=== PATIENT | male | born 1985 | race Caucasian/White ===

== ENCOUNTER 2018-04-22 14:32 | Emergency (ER) | payer SELFPAY ==
--- NOTE | 2018-04-22 15:23 | RAD REPORT ---
EXAM DESCRIPTION: RAD - Foot Right 3 View - 04/22/2018 3:13 pm CLINICAL HISTORY: Right foot pain status post injury FINDINGS: No fracture or dislocation is seen
--- NOTE | 2018-04-22 15:42 | ER ---
Nurse's Notes [facility] Name: Shashi Fernandes Age: 33 yrs Sex: Male : 1985 Arrival Date: 04/22/2018 Time: 14:33 Bed 10 Private MD: Unknown, Unknown Diagnosis: Contusion of right foot Presentation: 04/22 14:47 Presenting complaint: Patient states: "I dropped a hydraulic motor on my foot aa5 yesterday". Bruising noted to right foot. Transition of care: patient was not received from another setting of care. Onset of symptoms was April 2018. Risk Assessment: Do you want to hurt yourself or someone else? Patient reports no desire to harm self or others. Initial Sepsis Screen: Does the patient meet any 2 criteria? No. Patient's initial sepsis screen is negative. Does the patient have a suspected source of infection? No. Patient's initial sepsis screen is negative. Care prior to arrival: None. 14:47 Method Of Arrival: Ambulatory aa5 14:47 Acuity: LANDEN 4 aa5 Triage Assessment: 16:00 General: Appears in no apparent distress. iw 16:00 General: Behavior is calm, cooperative. iw 16:00 Injury Description: Abrasion. iw Historical: - Allergies: 14:48 No Known Allergies; aa5 - PMHx: 14:48 Anxiety; Bipolar disorder; Depression; PTSD; aa5 - PSHx: 14:48 None; aa5 - Immunization history:: Adult Immunizations unknown. - Social history:: Smoking status: Patient uses tobacco products, smokes one-half pack cigarettes per day. - Ebola Screening: : No symptoms or risks identified at this time. Screenin:00 Abuse screen: Denies threats or abuse. Nutritional screening: No deficits noted. aa5 Tuberculosis screening: No symptoms or risk factors identified. Fall Risk None identified. Assessment: 15:00 General: Appears comfortable, Behavior is calm, cooperative. Pain: Complains of pain in aa5 dorsum of right foot. Neuro: Level of Consciousness is awake, alert, obeys commands, Oriented to person, place, time, situation. Cardiovascular: No deficits noted. Respiratory: Airway is patent Respiratory effort is even, unlabored, Respiratory pattern is regular, symmetrical. GI: No signs and/or symptoms were reported involving the gastrointestinal system. : No signs and/or symptoms were reported regarding the genitourinary system. EENT: No signs and/or symptoms were reported regarding the EENT system. Derm: Skin is pink, warm \\T\\ dry. Bruising that is dark purple, on dorsum of right foot. Musculoskeletal: Range of motion: intact in all extremities. Vital Signs: 14:48 BP 143 / 79; Pulse 70; Resp 16 S; Temp 99.1(TE); Pulse Ox 99% on R/A; Weight 74.84 kg aa5 (R); Height 5 ft. 6 in. (167.64 cm) (R); Pain 8/10; 14:48 Body Mass Index 26.63 (74.84 kg, 167.64 cm) aa5 ED Course: 14:33 Patient arrived in ED. ag5 14:33 Unknown, Unknown is Private Physician. ag5 14:35 [facility]C [facility] snw 14:35 Davonte Gould MD is Attending Physician. snw 14:47 Triage completed. aa5 14:47 Arm band placed on. aa5 14:47 Patient has correct armband on for positive identification. aa5 14:49 Lyida Chi, RN is Primary Nurse. aa5 15:14 Foot Right 3 View XRAY In Process Unspecified. EDMS 16:20 Primary Nurse role handed off by Lydia Chi RN iw 16:20 Sandy Olivo, RN is Primary Nurse. iw 16:20 No provider procedures requiring assistance completed. Patient did not have IV access aa5 during this emergency room visit. Administered Medications: 16:20 Drug: Doxycycline 100 mg Route: PO; iw 16:20 Drug: Tetanus-Diphtheria Toxoid Adult 0.5 ml {Pyridine Operator: [email or web address]. Exp: iw 11/28/2018. Lot #: [id number]. } Route: IM; Site: right deltoid; 16:21 Drug: TORadol 60 mg Route: IM; Site: Ventrogluteal LEFT; iw Outcome: 15:42 Discharge ordered by . snw 16:20 Discharged to home ambulatory. aa5 16:20 Condition: good 16:20 Discharge instructions given to patient, Instructed on discharge instructions, follow up and referral plans. medication usage, Demonstrated understanding of instructions, follow-up care, medications, Prescriptions given X 2. 16:27 Patient left the ED. iw Signatures: Dispatcher [employer] EDSheila Orlando, BUSINESS OPERATIONS ANALYST-C BUSINESS OPERATIONS ANALYST-Csnw Sandy Olivo, RN RN iw Lydia Chi RN RN aa5 Shan Patel ag5 Corrections: (The following items were deleted from the chart) 17:33 16:20 Discharge instructions given to patient, Instructed on discharge instructions, aa5 follow up and referral plans. Demonstrated understanding of instructions, follow-up care, aa5
--- NOTE | 2018-04-22 15:43 | EDPHYS ---
Physician Documentation [facility] Name: Shashi Fenrandes Age: 33 yrs Sex: Male : 1985 Arrival Date: 04/22/2018 Time: 14:33 Bed 10 Private MD: Unknown, Unknown ED Physician Davonte Gould HPI: 04/22 15:36 This 33 yrs old Male presents to ER via Ambulatory with complaints of Foot snw Injury. 15:36 The patient presents with a crush injury, swelling, tenderness. The complaints affect snw the dorsum of right foot. Context: The problem was sustained outdoors, resulted from a crush injury, hydrolic motor, the patient can partially bear weight, the patient is able to ambulate, Problem is a result from a previous injury: No. Onset: The symptoms/episode began/occurred suddenly, yesterday, and became persistent. Associated signs and symptoms: The patient has no apparent associated signs or symptoms. Severity of symptoms: At their worst the symptoms were moderate, in the emergency department the symptoms are unchanged. The patient has not experienced similar symptoms in the past. It is unknown whether or not the patient has recently seen a physician. Historical: - Allergies: 14:48 No Known Allergies; aa5 - PMHx: 14:48 Anxiety; Bipolar disorder; Depression; PTSD; aa5 - PSHx: 14:48 None; aa5 - Immunization history:: Adult Immunizations unknown. - Social history:: Smoking status: Patient uses tobacco products, smokes one-half pack cigarettes per day. - Ebola Screening: : No symptoms or risks identified at this time. ROS: 15:35 Constitutional: Negative for fever, chills, and weight loss, Eyes: Negative for injury, snw pain, redness, and discharge, ENT: Negative for injury, pain, and discharge, Neck: Negative for injury, pain, and swelling, Cardiovascular: Negative for chest pain, palpitations, and edema, Respiratory: Negative for shortness of breath, cough, wheezing, and pleuritic chest pain, Abdomen/GI: Negative for abdominal pain, nausea, vomiting, diarrhea, and constipation, Back: Negative for injury and pain, : Negative for injury, bleeding, discharge, and swelling, Skin: Negative for injury, rash, and discoloration, Neuro: Negative for headache, weakness, numbness, tingling, and seizure. 15:35 MS/extremity: Positive for injury or acute deformity, contusion, ecchymosis, swelling, tenderness, of the right foot and right first toe. Exam: 15:33 Constitutional: This is a well developed, well nourished patient who is awake, alert, snw and in no acute distress. Head/Face: Normocephalic, atraumatic. Eyes: Pupils equal round and reactive to light, extra-ocular motions intact. Lids and lashes normal. Conjunctiva and sclera are non-icteric and not injected. Cornea within normal limits. Periorbital areas with no swelling, redness, or edema. ENT: Nares patent. No nasal discharge, no septal abnormalities noted. Tympanic membranes are normal and external auditory canals are clear. Oropharynx with no redness, swelling, or masses, exudates, or evidence of obstruction, uvula midline. Mucous membranes moist. Neck: Trachea midline, no thyromegaly or masses palpated, and no cervical lymphadenopathy. Supple, full range of motion without nuchal rigidity, or vertebral point tenderness. No Meningismus. Chest/axilla: Normal chest wall appearance and motion. Nontender with no deformity. No lesions are appreciated. Cardiovascular: Regular rate and rhythm with a normal S1 and S2. No gallops, murmurs, or rubs. Normal PMI, no JVD. No pulse deficits. Respiratory: Lungs have equal breath sounds bilaterally, clear to auscultation and percussion. No rales, rhonchi or wheezes noted. No increased work of breathing, no retractions or nasal flaring. Abdomen/GI: Soft, non-tender, with normal bowel sounds. No distension or tympany. No guarding or rebound. No evidence of tenderness throughout. Back: No spinal tenderness. No costovertebral tenderness. Full range of motion. Skin: Warm, dry with normal turgor. Normal color with no rashes, no lesions, and no evidence of cellulitis. Neuro: Awake and alert, GCS 15, oriented to person, place, time, and situation. Cranial nerves II-XII grossly intact. Motor strength 5/5 in all extremities. Sensory grossly intact. Cerebellar exam normal. Normal gait. Psych: Awake, alert, with orientation to person, place and time. Behavior, mood, and affect are within normal limits. 15:33 Musculoskeletal/extremity: Extremities: grossly normal except: noted in the right first toe: contusion, ecchymosis, swelling, tenderness, ROM: no acute changes, Circulation is intact in all extremities. Sensation intact. Compartment Syndrome exam of affected extremity: is normal. Vital Signs: 14:48 BP 143 / 79; Pulse 70; Resp 16 S; Temp 99.1(TE); Pulse Ox 99% on R/A; Weight 74.84 kg aa5 (R); Height 5 ft. 6 in. (167.64 cm) (R); Pain 8/10; 14:48 Body Mass Index 26.63 (74.84 kg, 167.64 cm) aa5 MDM: 14:58 Patient medically screened. snw 15:43 Data reviewed: vital signs, nurses notes. Data interpreted: Pulse oximetry: on room air snw is 99 %. Interpretation: normal. Counseling: I had a detailed discussion with the patient and/or guardian regarding: the historical points, exam findings, and any diagnostic results supporting the discharge/admit diagnosis, the presence of at least one elevated blood pressure reading (>120/80) during this emergency department visit, radiology results, the need for outpatient follow up, to return to the emergency department if symptoms worsen or persist or if there are any questions or concerns that arise at home. Special discussion: I have referred the patient to see his PCP for further evaluation of high blood pressure. I discussed in detail with the patient the higher chance of wound infection based on his presenting history. Based on the history and exam findings, there is no indication for further emergent testing or inpatient evaluation. I discussed with the patient/guardian the need to see the orthopedic surgeon for further evaluation of the symptoms. I discussed with the patient/guardian the need to see the primary care provider for further evaluation of the symptoms. 04/22 14:48 Order name: Foot Right 3 View XRAY; Complete Time: 15:25 aa5 04/22 15:43 Order name: Federico wrap-joint; Complete Time: 16:06 snw 04/22 15:43 Order name: Post-op Orthopedic Shoe; Complete Time: 16:06 snw Administered Medications: 16:20 Drug: Doxycycline 100 mg Route: PO; iw 16:20 Drug: Tetanus-Diphtheria Toxoid Adult 0.5 ml {Behavioral Geneticist: [email or web address]. Exp: iw 11/28/2018. Lot #: [id number]. } Route: IM; Site: right deltoid; 16:21 Drug: TORadol 60 mg Route: IM; Site: Ventrogluteal LEFT; Disposition: 16:40 Co-signature as Attending Physician, Davonte Gould MD. rn Disposition: 04/22/18 15:42 Discharged to Home. Impression: Contusion of right foot. - Condition is Stable. - Discharge Instructions: Elastic Bandage and RICE, Foot Contusion, VIS, Tetanus, Diphtheria (Td) - CDC. - Prescriptions for Diclofenac Sodium 75 mg Oral Tablet Sustained Release - take 1 tablet by ORAL route 2 times per day; 30 tablet. Doxycycline Hyclate 100 mg Oral Tablet - take 1 tablet by ORAL route every 12 hours; 20 tablet. - Medication Reconciliation Form, Thank You Letter, Antibiotic Education, Prescription Opioid Use, Work release form form. - Follow up: Private Physician; When: 2 - 3 days; Reason: Recheck today's complaints, Continuance of care, Re-evaluation by your physician. Follow up: Emergency Department; When: As needed; Reason: Worsening of condition. Signatures: Dispatcher [employer] EDMS Sheila Jones, TOOL FILER HAND-C TOOL FILER HAND-Csnw Sandy Olivo RN RN Davonte Gould MD MD rn Calderon, Audri, RN RN aa5 Corrections: (The following items were deleted from the chart) 16:27 15:42 04/22/2018 15:42 Discharged to Home. Impression: Contusion of right foot. iw Condition is Stable. Forms are Medication Reconciliation Form, Thank You Letter, Antibiotic Education, Prescription Opioid Use. Follow up: Private Physician; When: 2 - 3 days; Reason: Recheck today's complaints, Continuance of care, Re-evaluation by your physician. Follow up: Emergency Department; When: As needed; Reason: Worsening of condition. snw
[2018-04-22] MEDS ORDERED: TETANUS & DIPHTHERIA TOX,ADULT 0.5 ML VIAL ONE (16:22)
[2018-04-22] MEDS ORDERED: KETOROLAC 30 MG/ML INJ ONE (16:22)
[2018-04-22] MEDS ORDERED: DOXYCYCLINE 100 MG CAP PO ONE (16:22)
== END 2018-04-22 16:27 | disposition home or self-care (01) ==
LOC: ER 14:32
DX: S90.31XA Contusion of right foot, initial encounter (principal); W31.89XA Contact with other specified machinery, initial encounter; Y93.89 Activity, other specified; Y92.9 Unspecified place or not applicable; Y99.8 Other external cause status; Z23 Encounter for immunization; F17.210 Nicotine dependence, cigarettes, uncomplicated
CPT/HCPCS: 90714; 96372; 99283

== ENCOUNTER 2019-09-07 22:39 | Emergency (ER) | payer SELFPAY ==
[2019-09-07] MEDS ORDERED: NA CHLORIDE 0.9% 1,000 ML ONE (22:56)
[2019-09-08] MEDS ORDERED: NA CHLORIDE 0.9% 1,000 ML ONE ×3 (00:04→05:47)
[2019-09-08 00:17] LABS: Absolute Lymphocytes (CBC) 0.8 K/uL (0.7-4.9); Basophils % 0.4 % (0-1.3); Hematocrit 56.2 % (39.6-49.0); Lymphocytes % 3.6 % (15.3-44.8); MPV 10.5 fL (7.6-11.3); RBC Red Blood Cell Count 5.94 M/uL (4.33-5.43)
[2019-09-08 00:50] LABS: Barbiturates NEGATIVE (NEGATIVE); Benzodiazepines POSITIVE (NEGATIVE); Cocaine POSITIVE (NEGATIVE); METHAMPHETAM POSITIVE (NEGATIVE); Methadone NEGATIVE (NEGATIVE); Opiates NEGATIVE (NEGATIVE); Phencyclidine NEGATIVE (NEGATIVE); THC Cannibis NEGATIVE (NEGATIVE)
[2019-09-08 01:18] LABS: Albumin 3.3 g/dL (3.4-5.0); Alkaline Phosphatase 77 U/L (45-117); BUN Blood Urea Nitrogen 77 mg/dL (7-18); Bicarbonate 21 mmol/L (21-32); Bilirubin Direct 0.3 mg/dL (0-0.2); Bilirubin Total 0.7 mg/dL (0.2-1.0); Glucose Level 132 mg/dL (74-106); Protein, Total 8.8 g/dL (6.4-8.2); Sodium Level 138 mmol/L (136-145)
[2019-09-08 01:20] LABS: ALT/SGPT 1073 U/L (12-78); AST/SGOT 1759 U/L (15-37); Potassium 6.7 mmol/L (3.5-5.1)
[2019-09-08 01:21] LABS: Creatine Phosphokinase > 14000 U/L (39-308); Troponin (Emerg Dept Use Only) 6.82 ng/mL (0.0-0.045)
[2019-09-08 01:22] LABS: Blood Morphology Comment NOT SEEN (NOT SEEN); Platelet Estimate ADEQ
[2019-09-08] MEDS ORDERED: INSULIN -REGULAR HUMAN 50 UNIT/0.5 ML ML ONE (01:39)
[2019-09-08] MEDS ORDERED: D50W 25 GM/50 ML SYRINGE/VIAL IV ONE (01:39)
[2019-09-08] MEDS ORDERED: Caclcium Chloride 10% INJ SYR IV ONE (01:40)
[2019-09-08] MEDS ORDERED: CEFEPIME 2 GM VIAL ONE (02:03)
[2019-09-08] MEDS ORDERED: VANCOMYCIN 1 GM/VIAL ONE (02:04)
[2019-09-08] MEDS ORDERED: NA CHLORIDE 0.9% 100 ML IV ONE (02:04)
[2019-09-08] MEDS ORDERED: NA CHLORIDE 0.9% 250 ML ONE (02:04)
[2019-09-08] MEDS ORDERED: ALBUTEROL 2.5 MG/3 ML NEB SOL ONE (02:28)
[2019-09-08] MEDS ORDERED: ACETAMINOPHEN 650MG/RECT SUPP PR ONE (03:50)
[2019-09-08 05:25] LABS: Arterial Blood Carboxyhemoglob 0.8 % (0-1.5); Blood Gas Oxyhemoglobin 92.4 % (94-97)
[2019-09-08] MEDS ORDERED: HYDROCORTISONE SUC 100 MG INJ ONE (05:47)
[2019-09-08] MEDS ORDERED: FAMOTIDINE 20 MG/2 ML VIAL IV ONE (05:47)
[2019-09-08] MEDS ORDERED: NA CHLORIDE 0.9% 500 ML ONE (05:47)
[2019-09-08 05:58] LABS: Absolute Lymphocytes (CBC) 1.1 K/uL (0.7-4.9); Basophils % 0.8 % (0-1.3); Hematocrit 43.9 % (39.6-49.0); Lymphocytes % 5.5 % (15.3-44.8); MPV 10.1 fL (7.6-11.3); RBC Red Blood Cell Count 4.62 M/uL (4.33-5.43)
[2019-09-08 06:27] LABS: Potassium 5.3 mmol/L (3.5-5.1)
[2019-09-08 06:59] LABS: Blood Morphology Comment NOT SEEN (NOT SEEN); Platelet Estimate ADEQ
--- NOTE | 2019-09-08 10:40 | EDPHYS ---
Physician Documentation [facility] Name: Shashi Fernandes Age: 34 yrs Sex: Male : 1985 Arrival Date: 09/07/2019 Time: 22:42 Bed 20 Private MD: ED Physician Robby Nichols HPI: 09/06 22:44 This 34 yrs old Male presents to ER via EMS with complaints of Altered Mental jmm Status. 22:44 The patient presents with confusion, decreased mental status. Onset: The jmm symptoms/episode began/occurred at an unknown time. Possible causes: drug use. Associated signs and symptoms: Pertinent negatives: abdominal pain. This is a 34 year old male with a history of depression, bipolar, that presents to the ED with decreased responsiveness. Patient was found by hotel staff. Patient denies chest pain, abdominal pain. . Historical: - Allergies: 09/07 07:57 No Known Allergies; sv - PMHx: 09/06 22:58 PTSD; Depression; Bipolar disorder; Anxiety; ea - PSHx: 22:58 None; ea - Immunization history:: Adult Immunizations unknown. - Social history:: Smoking status: unknown. ROS: 22:44 Constitutional: Negative for fever, chills, and weight loss, Cardiovascular: Negative jmm for chest pain, palpitations, and edema, Respiratory: Negative for shortness of breath, cough, wheezing, and pleuritic chest pain, Abdomen/GI: Negative for abdominal pain, nausea, vomiting, diarrhea, and constipation. 22:44 All other systems are negative. Exam: 22:44 Head/Face: atraumatic. ENT: Moist Mucus Membranes Neck: Trachea midline, Supple jmm Chest/axilla: Normal chest wall appearance and motion. Cardiovascular: Regular rate and rhythm. No edema appreciated Respiratory: Normal respirations, no respiratory distress appreciated Abdomen/GI: Non distended, soft Back: Normal ROM 22:44 Skin: General appearance color normal MS/ Extremity: Moves all extremities, no obvious deformities appreciated, no edema noted to the lower extremities 22:44 Eyes: Pupils: dilated, bilaterally. 22:44 Neuro: Orientation: is normal, Mentation: is normal. 22:44 Psych: Vital Signs: 23:01 BP 143 / 117; Pulse 120; Resp 31; Temp 97.0; Pulse Ox 93% on R/A; ea 09/07 00:00 BP 158 / 102; Pulse 105; Resp 14; Temp 98.0; Pulse Ox 100% ; Pain 0/10; ls4 02:00 BP 155 / 100; Pulse 84; Resp 21; Pulse Ox 98% on R/A; ea 03:00 BP 151 / 105; Pulse 85; Resp 21; Pulse Ox 98% on R/A; ea 03:45 Temp 100.3; ea 04:00 BP 159 / 86; Pulse 82; Resp 18 S; Pulse Ox 97% on R/A; jd3 05:00 BP 149 / 80; Pulse 79; Resp 17 S; Pulse Ox 97% on R/A; jd3 06:08 BP 139 / 90; Pulse 85; Resp 19 S; Temp 97.8(TE); Pulse Ox 95% on R/A; jd3 00:00 flacc ls4 MDM: 09/06 22:44 Patient medically screened. [facility] 09/07 03:54 Transition of care: After a detail discussion of the patient's case, care is m transferred to Robby Nichols MD. 05:50 Data reviewed: vital signs, nurses notes, lab test result(s), EKG, radiologic studies, [facility] CT scan, plain films. 06:08 Differential Diagnosis: electrolyte abnormality, pneumonia, sepsis. Differential [facility] Diagnosis: CVA, alcohol intoxication, intracranial bleed, meningitis, overdose, seizure, TIA, UTI, volume depletion. Data interpreted: watchguard: rate is 85 beats/min, rhythm is normal sinus rhythm, Pulse oximetry: on 2L(s) per nasal canula, is 98 %. Test interpretation: by ED physician or midlevel provider: ECG, plain radiologic studies. Counseling: I had a detailed discussion with the patient and/or guardian regarding: the historical points, exam findings, and any diagnostic results supporting the discharge/admit diagnosis, lab results, radiology results, the need to transfer to another facility, for higher level of care, [facility] does not immediately have the required specialist. Medication response: albuterol nebulizer treatment(s) partially relieved the patient's wheezing. Awaiting: beds in [place] full, no beds karen, no [facility],none bt, none slt [facility]. second call to [facility], bed in [facility] found, transfer after 7am, shift change. 09/07 00:21 Order name: Urine Dipstick--Ancillary (enter results) tt3 09/07 00:52 Order name: CBC with Automated Diff; Complete Time: 01:23 EDMS 09/07 00:52 Order name: Alcohol Serum/Plasma; Complete Time: 00:57 EDMS 09/07 00:52 Order name: Protime (+INR); Complete Time: 00:57 EDMS 09/07 00:52 Order name: PTT, Activated Partial Thromb; Complete Time: 00:57 EDMS 09/07 00:52 Order name: Salicylates Level; Complete Time: 00:57 EDMS 09/07 00:52 Order name: Urine Drug Screen; Complete Time: 00:57 EDMS 09/07 01:22 Order name: Basic Metabolic Panel; Complete Time: 01:23 EDMS 09/07 01:22 Order name: Liver (Hepatic) Function; Complete Time: 01:23 EDMS 09/07 01:22 Order name: Creatine Phosphokinase; Complete Time: 01:23 EDMS 09/07 01:22 Order name: Troponin (Emerg Dept Use Only); Complete Time: 01:23 EDMS 09/07 01:22 Order name: Acetaminophen Level; Complete Time: 01:23 EDMS 09/07 01:23 Order name: Manual Differential; Complete Time: 01:23 [facility] 09/06 22:48 Order name: EKG - Nurse/Tech; Complete Time: 23:02 [facility] 09/06 22:48 Order name: IV Saline Lock; Complete Time: 23:02 [facility] 09/06 22:48 Order name: Labs collected and sent; Complete Time: 23:02 [facility] 09/06 22:48 Order name: Urine Dipstick-Ancillary (obtain specimen); Complete Time: 23:23 [facility] 09/07 02:02 Order name: Head C Spine Cap Wo Con EDMS 09/07 05:25 Order name: ABG Arterial Blood Gas; Complete Time: 05:48 EDMS 09/07 05:47 Order name: Basic Metabolic Panel; Complete Time: 06:39 EDMS 09/07 05:47 Order name: Procalcitonin EDMS 09/07 05:47 Order name: CBC with Automated Diff EDMS 09/07 06:59 Order name: Manual Differential EDMS Administered Medications: 09/06 23:01 Drug: NS 0.9% 1000 ml Route: IV; Rate: 1 bolus; Site: right antecubital; ls4 09/07 00:00 Drug: NS 0.9% 1000 ml Route: IV; Rate: 1 bolus; Site: right antecubital; ea 02:30 Drug: Insulin Regular Human 10 units {Co-Signature: justina (Preston Welch RN).} Route: ea IVP; Site: right antecubital; 03:44 Follow up: Response: No adverse reaction ea 02:30 Drug: Albuterol 2.5 mg Route: Inhalation; ea 02:30 Drug: Calcium Gluconate 1 grams Route: IVPB; Infused Over: 60 mins; Site: right ea antecubital; 04:00 Follow up: Response: No adverse reaction; IV Status: Completed infusion jd3 02:30 Drug: D50W 50 ml Route: IVP; Site: right antecubital; ea 03:16 Follow up: Response: No adverse reaction ea 02:30 Drug: NS 0.9% 1000 ml Route: IV; Rate: 1 bolus; Site: right antecubital; ea 03:16 Follow up: Response: No adverse reaction; IV Status: Completed infusion; IV Intake: ea 1000ml 02:45 Drug: Albuterol 2.5 mg Route: Inhalation; ea 02:56 Drug: Cefepime 2 grams Route: IVPB; Rate: 200 ml/hr; Infused Over: 30 mins; Site: right ea antecubital; 03:27 Follow up: Response: No adverse reaction; IV Status: Completed infusion; IV Intake: ea 100ml 03:00 Drug: Albuterol 2.5 mg Route: Inhalation; ea 03:27 Drug: vancoMYCIN 1 grams Route: IVPB; Infused Over: 2 hrs; Site: left hand; ea 05:20 Follow up: Response: No adverse reaction; IV Status: Completed infusion; IV Intake: jd3 250ml 03:44 Drug: Tylenol Suppository 650 mg Route: IA; ea 04:40 Follow up: Response: No adverse reaction jd3 06:11 Drug: NS 0.9% 1000 ml Route: IV; Rate: 125 ml/hr; Site: left hand; jd3 06:11 Drug: Pepcid 20 mg Route: IVP; Site: left hand; jd3 06:12 Drug: NS 0.9% 500 ml Route: IV; Rate: bolus; Site: left hand; jd3 06:12 Drug: Solu-CORTEF 100 mg Route: IVP; Site: left hand; jd3 06:13 Not Given (Duplicate Order): Pepcid 20 mg IVP once jd3 Disposition: 05:50 Co-signature as Attending Physician, Robby Nichols MD. [facility] Disposition: 09/08/19 04:48 Transfer ordered to Other Acute Care Facility. 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 - Reason for transfer: Higher level of care. - Accepting physician is to icu. - Condition is Serious. - Problem is new. - Symptoms are unchanged. Signatures: Dispatcher [employer] Klarissa Horvath, Robby Torres RN, MD MD cha Mickail, Joel, PA PA jmm Smirch, Shelby, RN RN ss Dona Vásquez RN Preston Comer ea, RN RN jd3 Cecy Rico RN RN ls4 Preston Welch RN jd3 Corrections: (The following items were deleted from the chart) 05:49 04:48 09/08/2019 04:48 Transfer ordered to Other Acute Care Facility. 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 Reason for transfer: Higher level of care. Accepting physician is to icu. Condition is Serious. Problem is new. Symptoms are unchanged. [facility] 09:19 05:49 09/08/2019 04:48 Transfer ordered to Other Acute Care Facility. 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 Reason for transfer: Higher level of care. Accepting physician is to icu. Condition is Serious. Problem is new. Symptoms are unchanged. sandrita
--- NOTE | 2019-09-08 10:40 | ER ---
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 EMS reported pt was responding to some verbal stimulus. EMS reports pt verbalized he was using meth today. Coronavirus screen: Proceed with normal triage. Ebola Screen: No symptoms or risks identified at this time. Initial Sepsis Screen: Does the patient meet any 2 criteria? Altered Mental Status. HR > 90 bpm. Does the patient have a suspected source of infection? No. Patient's initial sepsis screen is negative. Risk Assessment: Do you want to hurt yourself or someone else? Patient reports no desire to harm self or others. Onset of symptoms was September 07, 2019. 22:52 Method Of Arrival: EMS: [facility] 22:52 Acuity: LANDEN 3 ea Triage Assessment: 22:56 General: Appears unkempt, Behavior is drowsy, responds to some verbal stimulus. Pain: ea Unable to use pain scale. FLACC scale score is 2 out of 10. Neuro: Level of Consciousness is lethargic, Oriented to person, Pupils are dilated. Respiratory: Airway is patent Respiratory effort is even, shallow, Respiratory pattern is symmetrical. Derm: Wound noted left ear and left hand. Historical: - Allergies: 09/07 07:57 No Known Allergies; sv - PMHx: 09/06 22:58 PTSD; Depression; Bipolar disorder; Anxiety; ea - PSHx: 22:58 None; ea - Immunization history:: Adult Immunizations unknown. - Social history:: Smoking status: unknown. Screenin:55 Abuse screen: Denies threats or abuse. Nutritional screening: No deficits noted. ea Tuberculosis screening: No symptoms or risk factors identified. Fall Risk IV access (20 points). Assessment: 23:04 General: Appears ill, slender, unkempt. ls4 23:04 General: Behavior is flat, listless. Pain: Unable to use pain scale. Patient is ls4 disoriented. Neuro: Level of Consciousness is listless, obtunded, Oriented to none [facility] Pricing Consultant are . Speech UNABLE TO UNDERSTAND . Pupils are Pupil Size: 6 sluggish. Cardiovascular: Heart tones S1 S2 Capillary refill is sluggish. Respiratory: Airway is patent Respiratory effort is shallow, weak, Respiratory pattern is symmetrical, tachypnea Breath sounds are diminished bilaterally. GI: Abdomen is flat, Bowel sounds present X 4 quads. Abd is soft and non tender X 4 quads. Abd is non tender X 4 quads. : Urine is BROWN AND CLOWDY. 23:24 Derm: Wound noted left hand and left ear Wound is BLACK AND PURPLE AREAS OF BURN, DRY, ls4 NOT DRAINING. 23:47 Reassessment: No changes from previously documented assessment. PT STILL AWAKE, ls4 LISTLESS. INCOMPREHENSIBLE SOUNDS. . 06/24 00:32 Reassessment: No changes from previously documented assessment. ls4 01:16 Reassessment: Cassie Chaudhariian [phone] next of kin, emergency contact. ls4 02:35 General: Appears in no apparent distress. Behavior is responds to some verbal stimulus. ea Pain: Unable to use pain scale. Patient is disoriented. Neuro: Level of Consciousness is listless, Oriented to none. Respiratory: Airway is patent Respiratory effort is shallow, Respiratory pattern is symmetrical, tachypnea. Derm: Skin is dry, Wound noted left hand and left ear. 03:11 Reassessment: Patient and/or family updated on plan of care and expected duration. Pain ea level reassessed. Pt resting with eyes closed at this time. Respirations even and unlabored, chest expansions even and symmetrical. No s/s of pain or discomfort noted at this time. 06:00 Reassessment: Spoke with patient's sister, Cassie Fernandes at [phone]; Updated lp1 on pending transfer to [facility]; Cassie states understanding, contact info added to patient's face sheet, Cassie jane living in [place]. 06:10 Reassessment: No changes from previously documented assessment. Patient and/or family jd3 updated on plan of care and expected duration. Pain level reassessed. awaiting bed assignment for amy. Vital Signs: 09/06 23:01 BP 143 / 117; Pulse 120; Resp 31; Temp 97.0; Pulse Ox 93% on R/A; ea 09/07 00:00 BP 158 / 102; Pulse 105; Resp 14; Temp 98.0; Pulse Ox 100% ; Pain 0/10; ls4 02:00 BP 155 / 100; Pulse 84; Resp 21; Pulse Ox 98% on R/A; ea 03:00 BP 151 / 105; Pulse 85; Resp 21; Pulse Ox 98% on R/A; ea 03:45 Temp 100.3; ea 04:00 BP 159 / 86; Pulse 82; Resp 18 S; Pulse Ox 97% on R/A; jd3 05:00 BP 149 / 80; Pulse 79; Resp 17 S; Pulse Ox 97% on R/A; jd3 06:08 BP 139 / 90; Pulse 85; Resp 19 S; Temp 97.8(TE); Pulse Ox 95% on R/A; jd3 00:00 flacc ls4 ED Course: 09/06 22:42 Patient arrived in ED. ds1 22:43 Kael Appiah PA is PHCP. jmm 22:43 Robby Nichols MD is Attending Physician. [facility] 22:55 Triage completed. ea 22:55 Inserted saline lock: 20 gauge in right antecubital area, using aseptic technique. ea 22:55 Patient has correct armband on for positive identification. Placed in gown. Bed in low ea position. Call light in reach. court recording monitor on. Pulse ox on. NIBP on. 22:55 Arm band placed on right wrist. Patient placed in an exam room, on a stretcher, on ea cardiac care nurse, on pulse oximetry. 23:00 Cecy Rico, RN is Primary Nurse. ls4 23:02 No provider procedures requiring assistance completed. ls4 23:03 Initial lab(s) drawn, by ED staff, sent to lab. Patient maintains SpO2 saturation ls4 greater than 95% on room air. 23:23 Sánchez cath inserted, using sterile technique, 16 Fr., by nd, balloon inflated, to ls4 gravity drainage, urine specimen collected. 09/07 00:23 Notified Nurse Practitioner and/or Physician Tube Winder of a critical lab result(s), WBC lp1 22.5. 02:20 Head C Spine Cap Wo Con In Process Unspecified. EDMS 06:02 Pt being transferred. MD did transfer. tt3 08:09 Patient transferred, IV remains in place. intact. sv Administered Medications: 09/06 23:01 Drug: NS 0.9% 1000 ml Route: IV; Rate: 1 bolus; Site: right antecubital; ls4 09/07 00:00 Drug: NS 0.9% 1000 ml Route: IV; Rate: 1 bolus; Site: right antecubital; ea 02:30 Drug: Insulin Regular Human 10 units {Co-Signature: justina (Preston Welch RN).} Route: ea IVP; Site: right antecubital; 03:44 Follow up: Response: No adverse reaction ea 02:30 Drug: Albuterol 2.5 mg Route: Inhalation; ea 02:30 Drug: Calcium Gluconate 1 grams Route: IVPB; Infused Over: 60 mins; Site: right ea antecubital; 04:00 Follow up: Response: No adverse reaction; IV Status: Completed infusion jd3 02:30 Drug: D50W 50 ml Route: IVP; Site: right antecubital; ea 03:16 Follow up: Response: No adverse reaction ea 02:30 Drug: NS 0.9% 1000 ml Route: IV; Rate: 1 bolus; Site: right antecubital; ea 03:16 Follow up: Response: No adverse reaction; IV Status: Completed infusion; IV Intake: ea 1000ml 02:45 Drug: Albuterol 2.5 mg Route: Inhalation; ea 02:56 Drug: Cefepime 2 grams Route: IVPB; Rate: 200 ml/hr; Infused Over: 30 mins; Site: right ea antecubital; 03:27 Follow up: Response: No adverse reaction; IV Status: Completed infusion; IV Intake: ea 100ml 03:00 Drug: Albuterol 2.5 mg Route: Inhalation; ea 03:27 Drug: vancoMYCIN 1 grams Route: IVPB; Infused Over: 2 hrs; Site: left hand; ea 05:20 Follow up: Response: No adverse reaction; IV Status: Completed infusion; IV Intake: jd3 250ml 03:44 Drug: Tylenol Suppository 650 mg Route: MN; ea 04:40 Follow up: Response: No adverse reaction jd3 06:11 Drug: NS 0.9% 1000 ml Route: IV; Rate: 125 ml/hr; Site: left hand; jd3 06:11 Drug: Pepcid 20 mg Route: IVP; Site: left hand; jd3 06:12 Drug: NS 0.9% 500 ml Route: IV; Rate: bolus; Site: left hand; jd3 06:12 Drug: Solu-CORTEF 100 mg Route: IVP; Site: left hand; jd3 06:13 Not Given (Duplicate Order): Pepcid 20 mg IVP once jd3 Intake: 03:16 IV: 1000ml; Total: 1000ml. ea 03:27 IV: 100ml; Total: 1100ml. ea 05:20 IV: 250ml; Total: 1350ml. jd3 Output: 02:57 Urine: 700ml (Sánchez); Total: 700ml. ea Outcome: 04:48 ER care complete, transfer ordered by . [facility] 08:08 Transferred by ground EMS to [facility], Transfer form completed. sv X-rays sent w/ patient. Note: Report called to Shivani AQUINO 08:08 Condition: stable 08:08 Instructed on the need for transfer. 09:19 Patient left the ED. ss Signatures: Dispatcher [employer] Klarissa Horvath RN RN sv Anderson, Corey, MD MD cha Mickail, Joel, PA PA jmm Sanford, Demi ds1 Jessica Pabon RN RN ss Stephanie Soria RN RN lp1 Dona Vásquez RN RN ea Davies, Jonathon, RN RN jd3 Cecy Rico RN RN catherine4 Henry Aguillon tt3 Preston Welch RN jd3 Corrections: (The following items were deleted from the chart) 00:53 06/23 23:01 BP 143 / 117; Pulse 120bpm; Resp 31bpm; Pulse Ox 93% RA; ea ea
--- NOTE | 2019-09-08 12:51 | RAD REPORT ---
EXAM DESCRIPTION: Head C Spine Cap Wo Con CLINICAL HISTORY: AMS COMPARISON: None. TECHNIQUE: Axial unenhanced CT imaging of the brain, cervical spine, chest, abdomen and pelvis. Refo rmatted coronal and sagittal images obtained. This examination was performed according to our departmental dose optimization program, which include s automated exposure control, adjustment of the mA and/or kV according to patient size and/or use of iterative reconstruction technique. FINDINGS: CT HEAD: There is significant hypoattenuation within the right and left cerebral hemispheres and within the ve rmis compatible with edema. The fourth ventricle is diminutive in size. The cerebellar tonsils are lo w-lying without charlee ectopia. There is effacement of the prepontine cisterns. There is mild dilatation of the supratentorial ventricles including the third ventricle. There is no supratentorial edema, hemorrhage, mild hypoattenuation within the right and left basal ganglia due to remote infarcts. Intraorbital contents appear normal. There are fluid levels within the maxillary sinuses and right et hmoid air cells. Mastoid air cells are clear. Mild mucosal thickening/debris in the right sphenoid si nus. Intact skull base and calvarium. CT CERVICAL SPINE: There is normal cervical lordotic alignment. Vertebral body and intervertebral disc space height are within normal limits. No subluxation. No prevertebral edema. Mild degenerative hypertrophic endplate changes noted at C6-7. No spinal canal stenosis. There is mild relative narrowing of the right C6-7 n eural foramen. Intact posterior elements. The parapharyngeal soft tissues and mucosal spaces appear normal. Normal epiglottis. Normal larynx. U nremarkable thyroid. CT CHEST: Heart is normal in size. No pericardial fluid. Normal caliber thoracic aorta and main pulmonary arter y. No mediastinal hemorrhage, emphysema, or adenopathy. Normal trachea and main bronchi. Normal esoph neida. There are coarse opacities in the left upper lobe with streaky linear densities due to infiltrate/ate lectasis. There are faint loss centrilobular mild peribronchial densities in the left lower lobe, rig ht middle lobe pneumonitis. No pneumothorax or pleural fluid. No discrete mass seen. Unremarkable thyroid. No axillary adenopathy. Bony structures appear unremarkable. CT ABDOMEN: Normal liver, gallbladder, spleen, pancreas, adrenal glands, and kidneys. Aorta is normal in caliber with minimal atherosclerosis. Inferior vena cava is flattening contour indicative of hypovolemia. The re is persistent adenopathy. Unremarkable stomach, small bowel loops, appendix in the right hemipelvis, and colon. No ascites or f ree air. CT PELVIS: Bladder is filled with fluid and air with a Sánchez catheter in the bladder. No adjacent edema. Normal prostate. No pelvic free fluid. Normal lumbar alignment. Intact bony pelvis. Normal hips. There is subcutaneous edema within the left buttock the posterior lateral aspect of the left hip. The re is asymmetric enlargement of the left pectineus, obturator externus, and left gluteus elan. IMPRESSION: 1. Bilateral cerebellar and vermian edema with narrowing of the fourth ventricle and ear ly supratentorial hydrocephalus. This is concerning for subacute infarcts. No hemorrhage seen. 2. Minimal C6-7 cervical spondylosis. No acute cervical spine abnormality. 3. Left upper lobe infiltrates and atelectasis. Mild pneumonitis in the left lower lobe and lingula. 4. No acute finding within the abdomen. 5. Intraoperative bladder air, likely due to Sánchez catheterization. 6. Left pelvic and posterior lateral left hip subcutaneous edema. No evidence of pelvic or hip fractu re. Asymmetric enlargement of the left obturator externus, left gluteus elan and left pectineus ra ising the possibility of myositis. Electronically signed by: Damaris Vides DO 09/08/2019 2:39 AM CDT Due to temporary technical issues with the PACS/Fluency reporting system, reports are being signed by the in house radiologist without review as a courtesy to ensure prompt reporting. The interpreting r adiologist is fully responsible for the content of the report.
[2019-09-08 13:04] LABS: Urine Blood 3+ (NEG); Urine Glucose NEGATIVE (NEG); Urine Protein 2+ (NEG); Urine Specific Gravity 1.025 (1.005-1.030)
[2019-09-08 17:37] VITALS: BP 139/90; TEMP 97.8; O2SAT 95
== END 2019-09-08 09:19 ==
LOC: ER 22:39
DX: A41.9 Sepsis, unspecified organism (principal); J15.8 Pneumonia due to other specified bacteria; F14.10 Cocaine abuse, uncomplicated; F15.10 Other stimulant abuse, uncomplicated; G91.9 Hydrocephalus, unspecified; G32.81 Cerebellar ataxia in diseases classified elsewhere; M60.9 Myositis, unspecified; M62.82 Rhabdomyolysis; E87.5 Hyperkalemia; D72.825 Bandemia; N17.9 Acute kidney failure, unspecified; F31.9 Bipolar disorder, unspecified
CPT/HCPCS: 36415; 51702; 70450; 71250; 72125; 80048; 80076; 80307; 80320; 80329; 81003; 82550; 82805; 84145; 84484; 85025; 85610; 85730; 96365; 96368; 96375; 99285; J0692; J1720; J7030; J7040